=== PATIENT | female | born 1965 | race Two or more races ===

== ENCOUNTER 2021-05-04 06:00 | Day surgery (SDC) | payer OTHER ==
[~2021-05-04 06:00] MED LIST: ADULT LOW DOSE81 M1 PO; SIMVASTATIN40 MG PO; SYNTHROID50 MCG PO
== END 2021-05-04 20:00 | disposition home or self-care (01) ==
LOC: CIR.AMB 06:00
PROVIDERS: ATTEND Colon & Rectal Surgery
DX: D12.9 Benign neoplasm of anus and anal canal (principal); K64.1 Second degree hemorrhoids; Z20.822 Contact with and (suspected) exposure to COVID-19